=== PATIENT | male | born 1995 | race Caucasian/White ===

== ENCOUNTER 2019-09-16 00:18 | Emergency (ER) | payer BC ==
--- NOTE | 2019-09-16 00:50 | EDM.PDOC ---
ED HPI GENERAL MEDICAL PROBLEM - General Chief Complaint: Skin Complaint Stated Complaint: INFECTION ON LEFT LEG Time Seen by Provider: 09/16/19 00:21 Source of Information: Reports: Patient History Limitations: Reports: No Limitations - History of Present Illness INITIAL COMMENTS - FREE TEXT/NARRATIVE: 24-year-old male presents with leg infection. Patient reports a history of staph infections. He had a tattoo on his left lower leg completed about 2 weeks ago with some revision work about 8 days ago. 4 days ago he began to have redness and swelling on his mid anterior tibial region more toward the midline and then the lateral line. No significant pain but there is tenderness. No pain moving the knee or the ankle. No fevers no chills no nausea no vomiting no diarrhea no chest pain or shortness of breath. No confusion no weakness or numbness. L leg Pain Score (Numeric/FACES): 8 - Related Data Allergies Allergy/AdvReac Type Severity Reaction Status Date / Time No Known Allergies Allergy Verified 09/16/19 00:44 Home Meds: Home Meds Sulfamethoxazole/Trimethoprim [Bactrim Ds Tablet] 1 each PO BID 10 Days #20 tablet 09/16/19 [Rx] ED ROS GENERAL - Review of Systems Review Of Systems: Comprehensive ROS is negative, except as noted in HPI. ED EXAM, SKIN/RASH Exam: See Below Text/Narrative:: 4 cm x 3 cm oval area of erythema and induration over the lateral component of the mid anterior tibial region. There is a central scab E lesion at the center of the induration and redness. No drainage. The lesion is not fluctuant. There is no pain compressing the muscles and structures above or below the wound. No pain ranging the knee or the ankle. Course - Vital Signs Last Recorded V/S: Last Vital Signs Temp 96.7 F L 09/16/19 00:28 Pulse 86 09/16/19 00:28 Resp 17 09/16/19 00:28 BP 134/85 09/16/19 00:28 Pulse Ox 97 09/16/19 00:28 - Orders/Labs/Meds Meds: Medications Discontinued Medications Generic Name Dose Route Start Last Admin Trade Name Freq PRN Reason Stop Dose Admin Trimethoprim/Sulfamethoxazole 1 tab 09/16/19 01:16 09/16/19 01:24 Septra Ds PO 09/16/19 01:17 1 tab ONETIME ONE Administration Departure - Departure Time of Disposition: :20 Disposition: Home, Self-Care 01 Condition: Good Clinical Impression: Cellulitis - Discharge Information Prescriptions: Sulfamethoxazole/Trimethoprim [Bactrim Ds Tablet] 1 each PO BID 10 Days #20 tablet Instructions: Cellulitis, Adult, [id number] Referrals: PCP,Not In Area [Primary Care Provider] - Forms: ED Department Discharge Additional Instructions: Take your medicines as prescribed. Return to emergency immediately with any worsening of your symptoms or if the red area extends beyond the cooper on your leg. The following information is given to patients seen in the emergency department who are being discharged to home. This information is to outline your options for follow-up care. We provide all patients seen in our emergency department with a follow-up referral. The need for follow-up, as well as the timing and circumstances, are variable depending upon the specifics of your emergency department visit. If you don't have a primary care physician on staff, we will provide you with a referral. We always advise you to contact your personal physician following an emergency department visit to inform them of the circumstance of the visit and for follow-up with them and/or the need for any referrals to a consulting specialist. The emergency department will also refer you to a specialist when appropriate. This referral assures that you have the opportunity for follow-up care with a specialist. All of these measure are taken in an effort to provide you with optimal care, which includes your follow-up. Under all circumstances we always encourage you to contact your private physician who remains a resource for coordinating your care. When calling for follow-up care, please make the office aware that this follow-up is from your recent emergency room visit. If for any reason you are refused follow-up, please contact the [facility] Emergency Department at and asked to speak to the emergency department charge nurse. Care Plan Goals: The following information is given to patients seen in the emergency department who are being discharged to home. This information is to outline your options for follow-up care. We provide all patients seen in our emergency department with a follow-up referral. The need for follow-up, as well as the timing and circumstances, are variable depending upon the specifics of your emergency department visit. If you don't have a primary care physician on staff , we will provide you with a referral. We always advise you to contact your personal physician following an emergency department visit to inform them of the circumstance of the visit and for follow-up with them and/or the need for any referrals to a consulting specialist. The emergency department will also refer you to a specialist when appropriate. This referral assures that you have the opportunity for follow-up care with a specialist. All of these measure are taken in an effort to provide you with optimal care, which includes your follow- up. Under all circumstances we always encourage you to contact your private physician who remains a resource for coordinating your care. When calling for follow-up care, please make the office aware that this follow-up is from your recent emergency room visit. If for any reason you are refused follow-up, please contact the [facility] Emergency Department at and asked to speak to the emergency department charge nurse. [facility] [address] [place] [address] [id number] [address] [address] Sepsis Event Note - Evaluation Sepsis Screening Result: No Definite Risk - Focused Exam Date Exam was Performed: 09/16/19 Time Exam was Performed: 22:58
[2019-09-16] MEDS ORDERED: Sulfamethoxazole/Trimethoprim 800-160 MG Tab PO ONE (01:16)
== END 2019-09-16 01:26 | disposition home or self-care (01) ==
LOC: MW.ED 00:18
DX: L03.116 Cellulitis of left lower limb (principal)
CPT/HCPCS: 99283; A9270

== ENCOUNTER 2019-09-18 00:07 | Emergency (ER) | payer BC ==
[2019-09-18] MEDS ORDERED: Lidocaine 1% with EPINEPHrine 1:100,000 20 ML MDV INJECT ONE (01:27)
--- NOTE | 2019-09-18 01:37 | EDM.PDOC ---
ED HPI GENERAL MEDICAL PROBLEM - General Chief Complaint: Skin Complaint Stated Complaint: INFECTION ON LT LEG Time Seen by Provider: 09/18/19 00:24 Source of Information: Reports: Patient History Limitations: Reports: No Limitations - History of Present Illness INITIAL COMMENTS - FREE TEXT/NARRATIVE: 24-year-old male returns for wound check. Patient reports about a 10-day history of wound on his left anterior tibial region. He was seen here several days ago and put on antibiotics for this lesion. Patient is a history of similar lesions. Patient reports that the redness has actually decreased but that he was having some pain just left lateral to the wound and somewhat inferior as well to the wound which he took ibuprofen for it seemed to help. He wants to know if the boil can now be drained and he also wants to know why his leg was hurting. Patient denies any fever, chills, nausea, vomiting diarrhea, chest pain, shortness of breath. He endorses taking 2 Bactrim today. Left leg Pain Score (Numeric/FACES): 2 - Related Data Allergies Allergy/AdvReac Type Severity Reaction Status Date / Time No Known Allergies Allergy Verified 09/16/19 00:44 Home Meds: Home Meds Sulfamethoxazole/Trimethoprim [Bactrim Ds Tablet] 1 each PO BID 10 Days #20 tablet 09/16/19 [Rx] Doxycycline Monohydrate 100 mg PO BID 4 Days #8 capsule 09/18/19 [Rx] Past Medical History Dermatologic History: Reports: Other (See Below) Other Dermatologic History: infection to left lower leg - Infectious Disease History Infectious Disease History: Reports: MRSA, Other (See Below) Other Infectious Disease History: staph Social & Family History - Family History Family Medical History: Noncontributory - Tobacco Use Smoking Status *Q: Never Smoker - Caffeine Use Caffeine Use: Reports: None - Recreational Drug Use Recreational Drug Use: No ED ROS GENERAL - Review of Systems Review Of Systems: Comprehensive ROS is negative, except as noted in HPI. ED EXAM, SKIN/RASH Exam: See Below Text/Narrative:: General: No acute distress. Comfortable. Extremities: Raised boil with small scab on top approximately 1 cm round. There is surrounding erythema approximately 4 cm in total diameter around the wound. About a centimeter inferior to this there is some tenderness of the tissue that seems to be shallow. There is no pain with compression of the mid calf. There is no pain on ranging the ankle. There is no pain ranging the thigh. There are no red streaks on the thigh of the lower leg or the foot. Peripheral examination revealed no pedal edema. Peripheral pulses were 2+. ED SKIN PROCEDURES - Additional/Other Procedure(s) Other (Free Text) Procedure(s): Procedure: Incision and drainage. Indication: abscess on leg. Location left anterior tibial region Details: Risk and benefit discussed with the patient. Wound was covered with Betadine allowed to dry. 4 cc of 1% lidocaine with epinephrine was infused into the wound. After waiting 5 minutes, 11 blade was used to open a 1 m incision directly over the abscess. About 4 cc of nikki pus and then later bloody pus came out over the wound. Wound was then washed with water and covered with a sterile dressing. Patient tolerated procedure well. Course - Vital Signs Text/Narrative:: Patient reported some pain around the wound which is a little bit atypical. Of course I cannot see completely there is no chance of a deep space infection or rapid infection moving along the fascial plane. That being said the redness externally seems to be better than previous. The pain is really not out of proportion. He reports taking Motrin and making the pain much better he says he feels almost no pain now but he force variation equipment tender around the wound. I offered him transfer to be assessed by surgery and also offered a CT scan. He then said that he thought this was no significant infection there because he feels much better after Motrin. I told him I could not guarantee there was a deep space infection that could cause serious injury to his leg. He brought about more than once again said he wants no further work-up except to have the abscess drained. He is very well aware of the risk. I think is very unlikely he has a deep space infection considering the fact he has no tenderness with compression above or below the wound just some very localized tenderness just inferior and medial to the wound. Still I cannot explain the aching he described earlier. This aching is since vanished. I will demar the abscess and perhaps add an additional agent. The patient will follow up with any worsening. Importantly, after numbing the very local boil on the leg, the patient reports no pain whatsoever and again this argues against deep space infection. I did offer yet again to have the patient complete some laboratory work and/or transfer and/or CT scans, but again he declined. He is okay with risk of going home Last Recorded V/S: Last Vital Signs Temp 97.2 F 09/18/19 00:11 Pulse 87 09/18/19 00:11 Resp 20 09/18/19 00:11 BP 149/100 H 09/18/19 00:11 Pulse Ox 98 09/18/19 00:11 - Orders/Labs/Meds Meds: Medications Discontinued Medications Generic Name Dose Route Start Last Admin Trade Name Jose L PRN Reason Stop Dose Admin Lidocaine/Epinephrine 20 ml 09/18/19 01:27 09/18/19 02:40 Xylocaine 1% With Epinephrine 1:100,000 INJECT 09/18/19 01:28 20 ml ONETIME ONE Administration Departure - Departure Time of Disposition: 02:32 Disposition: Home, Self-Care 01 Condition: Good Clinical Impression: Abscess - Discharge Information Prescriptions: Doxycycline Monohydrate 100 mg PO BID 4 Days #8 capsule Instructions: Skin Abscess, [id number] Referrals: PCP,None [Primary Care Provider] - Forms: ED Department Discharge Additional Instructions: Take all of your antibiotics. Watch for any worsening. Return immediately to emergency with any pain in your lower extremity or on your thigh or any fevers or any other constitutional symptoms. The following information is given to patients seen in the emergency department who are being discharged to home. This information is to outline your options for follow-up care. We provide all patients seen in our emergency department with a follow-up referral. The need for follow-up, as well as the timing and circumstances, are variable depending upon the specifics of your emergency department visit. If you don't have a primary care physician on staff, we will provide you with a referral. We always advise you to contact your personal physician following an emergency department visit to inform them of the circumstance of the visit and for follow-up with them and/or the need for any referrals to a consulting specialist. The emergency department will also refer you to a specialist when appropriate. This referral assures that you have the opportunity for follow-up care with a specialist. All of these measure are taken in an effort to provide you with optimal care, which includes your follow-up. Under all circumstances we always encourage you to contact your private physician who remains a resource for coordinating your care. When calling for follow-up care, please make the office aware that this follow-up is from your recent emergency room visit. If for any reason you are refused follow-up, please contact the [facility] Emergency Department at and asked to speak to the emergency department charge nurse. Sepsis Event Note - Evaluation Sepsis Screening Result: No Definite Risk - Focused Exam Vital Signs: Vital Signs Temp Pulse Resp BP Pulse Ox 09/18/19 00:11 97.2 F 87 20 149/100 H 98 Date Exam was Performed: 09/18/19 Time Exam was Performed: 06:04
== END 2019-09-18 02:45 | disposition home or self-care (01) ==
LOC: MW.ED 00:07
DX: L02.416 Cutaneous abscess of left lower limb (principal)
CPT/HCPCS: 99282